=== PATIENT | male | born 1950 | race Caucasian/White ===

== ENCOUNTER 2018-03-14 10:07 | Emergency (ER) | payer MEDICARE, MEDICAID ==
[~2018-03-14] VITALS: Ht 157.5 cm; Wt 71.0 kg
[2018-03-14 10:28] VITALS: BP 121/42
[2018-03-14 10:40] LABS: GLUCOSE,POINT OF CARE 119 MG/DL (70-110)
[2018-03-14] MEDS ORDERED: POVIDONE-IODINE 10% 15 ML SOLUTION UD TP ONE (11:15)
[2018-03-14] MEDS ORDERED: LIDOCAINE 1% 10 ML VIAL INJ ONE (11:15)
[2018-03-14] MEDS ORDERED: IBUPROFEN 800 MG TABLET PO ONE (11:15)
[2018-03-14] MEDS ORDERED: BACITRACIN 0.9 GM PACKET OINTMENT TP ONE (11:15)
[2018-03-14] MEDS ORDERED: PERTUSS(ACELL),DIPH,TET VAC/PF 0.5 ML VIAL IM ONE (11:15)
== END 2018-03-14 12:17 | disposition home or self-care (01) ==
LOC: EMS 10:08
DX: S61.011A Laceration without foreign body of right thumb without damage to nail, initial encounter (principal); E11.9 Type 2 diabetes mellitus without complications; W26.8XXA Contact with other sharp object(s), not elsewhere classified, initial encounter; Y93.89 Activity, other specified; Y92.89 Other specified places as the place of occurrence of the external cause; Y99.8 Other external cause status
CPT/HCPCS: 12001; 82962; 90471; 90715; 99283; J3490

== ENCOUNTER 2018-03-28 10:38 | Emergency (ER) | payer MEDICARE, MEDICAID ==
[~2018-03-28] VITALS: Ht 157.5 cm; Wt 79.5 kg
[2018-03-28 10:59] LABS: GLUCOSE,POINT OF CARE 124 MG/DL (70-110)
[2018-03-28 11:31] VITALS: BP 118/80
== END 2018-03-28 11:36 | disposition home or self-care (01) ==
LOC: EMS 10:38
DX: S61.011D Laceration without foreign body of right thumb without damage to nail, subsequent encounter (principal); E11.9 Type 2 diabetes mellitus without complications; X58.XXXD Exposure to other specified factors, subsequent encounter

== ENCOUNTER 2018-04-19 09:15 | Emergency (ER) | payer MEDICARE, MEDICAID ==
[~2018-04-19] VITALS: Ht 157.5 cm; Wt 75.9 kg
[2018-04-19 09:29] LABS: GLUCOSE,POINT OF CARE 121 MG/DL (70-110)
[2018-04-19 10:34] VITALS: BP 138/63
== END 2018-04-19 10:37 | disposition home or self-care (01) ==
LOC: EMS 09:17
DX: S21.219D Laceration without foreign body of unspecified back wall of thorax without penetration into thoracic cavity, subsequent encounter (principal); E11.9 Type 2 diabetes mellitus without complications; X58.XXXD Exposure to other specified factors, subsequent encounter